=== PATIENT | female | born 1975 | race Caucasian/White ===

== ENCOUNTER 2017-05-18 11:27 | Emergency (ER) | payer BC ==
--- NOTE | 2017-05-18 15:00 | UC ---
Skin Complaint HPI - HPI Summary HPI Summary: DIFFUSE CIRCULAR RASHES ITHCHY ON TOR[place] WITH SMALL BLISTER IN CENTER. NO FEVER. NO KNOWN TRAUMA, NO KNOWN EXPOSURES. SYMPTOMS BEGAN ONE WEEK AGO. NEW ONES DEVELOP EACH NIGHT. - History of Current Complaint Chief Complaint: UCSkin Time Seen by Provider: 05/18/17 13:36 Stated Complaint: RASH Hx Obtained From: Patient Hx Last Menstrual Period: 05/05/17 Onset/Duration: Sudden Onset, Lasting Weeks, Still Present Skin Exposure Onset/Duration: Days Ago Timing: Constant Onset Severity: Mild Current Severity: Mild Pain Intensity: 0 Pain Scale Used: 0-10 Numeric Location: Diffuse - TORSO Character: Pruritus, Raised Aggravating: Touch Alleviating: Nothing Associated Signs & Symptoms: Positive: Rash. Negative: Vomiting, Numbness, Weakness, Fever, Chills, Hoarseness, Throat Tightening, Drainage, Bruising, Tenderness Related History: Insect Bite/Sting - Allergy/Home Medications Allergies/Adverse Reactions: Allergies Allergy/AdvReac Type Severity Reaction Status Date / Time No Known Allergies Allergy Verified 10/03/12 14:02 Review of Systems Constitutional: Negative Skin: Rash Eyes: Negative ENT: Negative Respiratory: Negative Cardiovascular: Negative Gastrointestinal: Negative Genitourinary: Negative Motor: Negative Neurovascular: Negative Musculoskeletal: Negative Neurological: Negative Psychological: Negative All Other Systems Reviewed And Are Negative: Yes PMH/Surg Hx/FS Hx/Imm Hx Previously Healthy: Yes - Surgical History Surgical History: Yes Surgery Procedure, Year, and Place: sinus surgery 1994 - Family History Known Family History: Negative: Blood Disorder - Social History Occupation: Employed Full-time Lives: With Family Alcohol Use: Occasionally Substance Use Type: None Smoking Status (MU): Never Smoked Tobacco Physical Exam Triage Information Reviewed: Yes Appearance: Well-Appearing, No Pain Distress, Well-Nourished Vital Signs: Initial Vital Signs Temp 97.9 F 05/18/17 13:13 Pulse 90 05/18/17 13:13 Resp 16 05/18/17 13:13 Pulse Ox 100 05/18/17 13:13 Vital Signs Reviewed: Yes Eye Exam: Normal ENT Exam: Normal ENT: Positive: Normal ENT inspection, Hearing grossly normal, Pharynx normal, TMs normal Dental Exam: Normal Neck exam: Normal Neck: Positive: Supple, Nontender, No Lymphadenopathy Respiratory Exam: Normal Respiratory: Positive: Chest non-tender, Lungs clear, Normal breath sounds, No respiratory distress, No accessory muscle use Cardiovascular Exam: Normal Cardiovascular: Positive: RRR, No Murmur, Pulses Normal Abdominal Exam: Normal Musculoskeletal Exam: Normal Musculoskeletal: Positive: Strength Intact, ROM Intact Neurological Exam: Normal Psychological Exam: Normal Psychological: Positive: Normal Response To Family Skin: Positive: rashes - DIFFUSE ERYTHEMATOUS 1CM X 1CM CIRCULAR RASHES WITH 1mm X 1mm VESICULAR BLISTER IN CENTER ON TOR[place] Course/Dx - Differential Diagnoses - Skin Complaint Differential Diagnoses: Contact Dermatitis, Drug Rash, Eczema, Impetigo, Poison Mary, Scabies, [place], Sher-Jorge Alberto Syndrome, Systemic Illness, Tick Born Illness, Tinea, Urticaria - Diagnoses Provider Diagnoses: INSECT BITES/STING TORSO; LOCAL ALLERGIC REACTIONS Discharge - Discharge Plan Condition: Stable Disposition: HOME Prescriptions: Triamcinolone 0.1% OINT(NF) [Kenalog 0.1% OINT(NF)] 1 applic .SEE ORDER BID #1 tube Patient Education Materials: Insect Bite or Sting (ED) Referrals: Chandan Nunez MD [Primary Care Provider] - Images Front/Back of Body, Lg ([place]): 1 - DIFFUSE ERYTHEMATOUS 1CM X 1CM CIRCULAR RASHES WITH 1mm X 1mm VESICULAR BLISTER IN CENTER ON [place] 2 - DIFFUSE ERYTHEMATOUS 1CM X 1CM CIRCULAR RASHES WITH 1mm X 1mm VESICULAR BLISTER IN CENTER ON [place]
== END 2017-05-18 14:15 | disposition home or self-care (01) ==
LOC: UCEAST 11:27
DX: S30.861A Insect bite (nonvenomous) of abdominal wall, initial encounter (principal); W57.XXXA Bitten or stung by nonvenomous insect and other nonvenomous arthropods, initial encounter; Y93.9 Activity, unspecified; Y92.9 Unspecified place or not applicable; Y99.9 Unspecified external cause status
CPT/HCPCS: 99212; G0463

== ENCOUNTER 2017-09-19 11:30 | Emergency (ER) | payer BC ==
[2017-09-19] MEDS ORDERED: NS 0.9% 1000 ML* 1,000 ML IV ONE (13:22)
[2017-09-19] MEDS ORDERED: Morphine INJ* 4 MG/ML 1 ML CARPUJECT IV ONE ×2 (13:22→15:43)
--- NOTE | 2017-09-19 13:28 | ED ---
Adult Trauma - HPI Summary HPI Summary: Pt here w/ fall downstairs last night - lost her footing and fell backward, landing on stairs - back striking step edge. Large bruise with bump now over lower back. Painful lying flat on back or sitting with back resting against chair - better w/ lying on side. Denies LOC, head injury, BENÍTEZ, photophobia, nausea, vomiting, visual change, neck pain, numbness, tingling, weakness, hematuria, ab pain, chest pain, SOB, change in bowel/bladder habits. She's been icing and took ibuprofen 800mg. Back pain is starting to wrap around Lt side. - History of Current Complaint Chief Complaint: EDBackInjuryPain Stated Complaint: FALL BACK PAIN Time Seen by Provider: 09/19/17 12:03 Hx Obtained From: Patient Hx Last Menstrual Period: 05/05/17 Pain Intensity: 8 - Allergy/Home Medications Allergies/Adverse Reactions: Allergies Allergy/AdvReac Type Severity Reaction Status Date / Time No Known Allergies Allergy Verified 10/03/12 14:02 PMH/Surg Hx/FS Hx/Imm Hx Previously Healthy: Yes Endocrine/Hematology History: Denies: Hx Anticoagulant Therapy, Hx Blood Disorders, Hx Anemia, Hx Unexplained Bleeding, Hx Coagulopothy Musculoskeletal History: Denies: Hx Osteoporosis - Cancer History Hx Chemotherapy: No Hx Radiation Therapy: No - Surgical History Surgery Procedure, Year, and Place: sinus surgery 1994 Infectious Disease History: No Infectious Disease History: Denies: Hx Clostridium Difficile, Hx Hepatitis, Hx Human Immunodeficiency Virus (HIV), Hx of Known/Suspected MRSA, Hx Shingles, Hx Tuberculosis, Hx Known/ Suspected VRE, Hx Known/Suspected VRSA, History Other Infectious Disease, Traveled Outside the [place] in Last 30 Days - Family History Known Family History: Negative: Blood Disorder - Social History Occupation: Employed Full-time Lives: With Family Alcohol Use: Occasionally Hx Substance Use: No Substance Use Type: Reports: None Hx Tobacco Use: No Smoking Status (MU): Never Smoked Tobacco Review of Systems Constitutional: Negative Negative: Fatigue Eyes: Negative Negative: Photophobia, Blurred Vision, Diplopia ENT: Negative Negative: Dental Pain Cardiovascular: Negative Negative: Chest Pain Respiratory: Negative Negative: Shortness Of Breath Gastrointestinal: Negative Positive: Abdominal Pain - as in HPI. Negative: Vomiting, Diarrhea, Nausea Positive: flank pain - as in HPI. Negative: hematuria, incontinence Positive: Arthralgia, Myalgia Positive: Bruising Neurological: Negative Negative: Headache, Weakness, Paresthesia, Numbness, Syncope, Slurred Speech Psychological: Normal All Other Systems Reviewed And Are Negative: Yes Physical Exam Triage Information Reviewed: Yes Vital Signs On Initial Exam: Initial Vitals Temp Pulse Resp BP Pulse Ox 97.7 F 99 20 153/99 97 09/19/17 11:49 09/19/17 11:49 09/19/17 11:49 09/19/17 11:49 09/19/17 11:49 Vital Signs Reviewed: Yes Appearance: Positive: Well-Appearing, Well-Nourished, Pain Distress - mild Skin: Positive: Warm - favian purpuric ecchymosis over lumbar region and up into lower thoracic region w/ central clear skin which is well defined and raised - TTP, Dry Head/Face: Positive: Normal Head/Face Inspection Eyes: Positive: Normal, EOMI, FABIO, Conjunctiva Clear ENT: Positive: Normal ENT inspection, Hearing grossly normal, Pharynx normal, TMs normal - no hemotympanum Dental: Negative: Dental Fracture @ Neck: Positive: Supple, Nontender - FROM w/o pain or restriction Respiratory/Lung Sounds: Positive: Clear to Auscultation, Breath Sounds Present , Other - no flail chest Cardiovascular: Positive: Normal, RRR, S1, S2 Abdomen Description: Positive: No Organomegaly, Soft, Other: - mild LUQ TTP Bowel Sounds: Positive: Present Musculoskeletal: Positive: Normal, Strength/ROM Intact, Pain @ - back TTP as mentioned above Neurological: Positive: Normal, Sensory/Motor Intact, Alert, Oriented to Person Place, Time, CN Intact II-III Psychiatric: Positive: Normal - Zhen Coma Scale Coma Scale Total: 15 Diagnostics - Vital Signs Vital Signs Temp Pulse Resp BP Pulse Ox 09/19/17 11:49 97.7 F 99 20 153/99 97 - Laboratory Result Diagrams: 09/19/17 13:45 09/19/17 13:45 Diagnostic Studies Comment: CT chest/ab/pelvis: report indicates hematoma 13.4cm x 3.9cm x 8.9cm w/o other acute findings Lab Statement: Any lab studies that have been ordered have been reviewed, and results considered in the medical decision making process. Re-Evaluation - Re-Evaluation First Eval Change: Improved - morphine Second Eval Change: Worse - pain worse after CT - morphine ordered Third Eval Change: Improved Adult Trauma Course/Dx - Course Course Of Treatment: Pt here w/ fall downstairs last night and landed on back. Large hematoma is only acute pathology discovered upon PE and CT scan. Labs and vitals are stable. Pt d/c'd home w/ advice to rest, ice and take pain meds as directed. F/u w/ PCP. Danger s/sx reviewed for when to f/u in ED. Pt and male friend agree w/ plan. - Diagnoses Provider Diagnoses: Fall down stairs, Traumatic hematoma of lower back Discharge - Discharge Plan Condition: Stable Disposition: HOME Prescriptions: HYDROcodone/ACETAMIN 5-325 MG* [[place] 5-325 TAB*] 1 tab PO Q6H PRN #20 tab MDD 4 PRN Reason: Pain Ibuprofen TAB* [Motrin TAB* 600 MG] 600 mg PO Q6H PRN #20 tab PRN Reason: Pain Patient Education Materials: Hematoma (ED), Fall Prevention (ED) Referrals: Chandan Nunez MD [Primary Care Provider] - Additional Instructions: Rest, out of work, ice, take meds as directed Follow-up with PCP in 1 week *If you develop bloody urine, changes in bladder/bowel function, headache, visual change, vomiting, chest pain, shortness of breath, fever, lower extremity numbness, tingling or weakness, return to ED
[2017-09-19] MEDS: Ondansetron INJ* 2 MG/ML VIAL IV ONE ×2 (13:50→13:55)
[2017-09-19 14:03] LABS: Hematocrit 36 % (35-47); Mean Corpuscular HGB Conc 34 g/dl (31-36); Mean Corpuscular Hemoglobin 30 pg (27-31); Mean Corpuscular Volume 89 fL (80-97); Mean Platelet Volume 8 um3 (7.4-10.4); Red Blood Count 4.04 10^6/ul (4.0-5.4); Red Cell Distribution Width 14 % (10.5-15); White Blood Count 5.4 10^3/ul (3.5-10.8)
[2017-09-19 14:17] LABS: ALT 13 U/L (7-52); AST 15 U/L (13-39); Albumin 3.8 g/dL (3.2-5.2); Alkaline Phosphatase 36 U/L (34-104); Anion Gap 5 mmol/L (2-11); BUN/Creatinine Ratio 17.4 (8-20); Blood Urea Nitrogen 12 mg/dL (6-24); CO2 Carbon Dioxide 23 mmol/L (22-32); Calcium 8.6 mg/dL (8.6-10.3); Chloride 106 mmol/L (101-111); Creatine Kinase 55 U/L (10-223); EGFR African American 120.6 (>60); EGFR Non-African American 93.8 (>60); Globulin 2.5 g/dL (2-4); Glucose 94 mg/dL (70-100); Potassium 3.7 mmol/L (3.5-5.0); Sodium 134 mmol/L (133-145); Total Protein 6.3 g/dL (6.4-8.9)
[2017-09-19] MEDS ORDERED: Iohexol 300* (CONTRAST) 10 ML SDV IV ONE (14:25)
[2017-09-19 14:41] LABS: Urine Bilirubin Negative (Negative); Urine Glucose Negative (Negative); Urine Nitrite Negative (Negative)
--- NOTE | 2017-09-19 15:18 | RAD ---
INDICATION: Fall. Chest and abdominal trauma. COMPARISON: None TECHNIQUE: Axial source images were obtained from the thoracic inlet to the symphysis pubis following administration of oral and intravenous contrast. 121 mL Omnipaque 300 was utilized. Coronal and sagittal reconstructed images were acquired. CHEST FINDINGS: Neck/thyroid: The visualized neck to include the thyroid appear normal. Chest wall: There are no acute abnormalities of the bony thorax or chest wall. There is no supraclavicular, infraclavicular, or axillary lymphadenopathy. Lungs : There are no pulmonary parenchymal masses or infiltrates. The pulmonary interstitium appears normal. There are no endobronchial lesions. Cardiomediastinal structures: The heart is normal in size. There is no pericardial effusion. There is no evidence of aortic aneurysm or dissection. The pulmonary vessels appear normal. There is no mediastinal or hilar adenopathy. The esophagus appears normal. Pleura : There are no pleural-based masses or effusions. ABDOMINAL/PELVIC FINDINGS: Liver: The liver is normal in size. There are no masses. There is no ductal dilatation. Gallbladder: There are no calcified gallstones. There is no evidence of wall thickening or pericholecystic fluid. Spleen: The spleen is normal in size. There are no masses. Pancreas: There is no evidence of pancreatic mass or ductal dilatation. Adrenal glands: There is no evidence of adrenal mass. Kidneys: The kidneys are normal in size and position. There are prompt nephrograms and there is prompt excretion bilaterally. There are no renal parenchymal masses. There is no evidence of nephrolithiasis. Adenopathy: There is no evidence of adenopathy by size criteria. Fluid collections: There are no free or localized fluid collections. Vessels:The aorta and IVC appear normal GI tract: There are no acute CT bowel findings. There is no obstruction. The stomach and small bowel appear normal. The lower GI tract is normal. The cecum, ileocecal valve, and terminal ileum appear normal. The appendix is visualized and appear normal. Pelvic organs: The uterus and adnexa appear normal Bladder: There are no bladder masses. Abdominal and pelvic soft tissues: In the posterior soft tissues of the back along the midline extending from L3 through L5 is a soft tissue density mass measuring 13.4 x 3.9 cm in transverse dimensions and 8.9 cm in cephalocaudal dimension. By report this represent a large hematoma related to direct trauma. There are no additional soft tissue abnormalities. Osseous structures: There are no acute osseous findings. IMPRESSION: THERE IS A LARGE SUPERFICIAL HEMATOMA ALONG THE MIDLINE OF THE LOWER BACK. THERE IS NO CT EVIDENCE OF VISCERAL INJURY OR ACUTE FRACTURE.
[2017-09-19 15:53] VITALS: BP 121/66
--- NOTE | 2017-09-19 17:20 | RAD ---
HISTORY: Left forearm pain and bruising, fall COMPARISONS: None VIEWS: 2, Frontal and lateral views of the left forearm FINDINGS: BONE DENSITY: Normal. BONES: There is no displaced fracture. JOINTS: There is no arthropathy. ALIGNMENT: There is no dislocation. SOFT TISSUES: Unremarkable. OTHER FINDINGS: None. IMPRESSION: NO ACUTE OSSEOUS INJURY. IF SYMPTOMS PERSIST, RECOMMEND REPEAT IMAGING.
== END 2017-09-19 16:50 | disposition home or self-care (01) ==
LOC: ED 11:30
DX: S30.0XXA Contusion of lower back and pelvis, initial encounter (principal); R10.9 Unspecified abdominal pain; R10.84 Generalized abdominal pain; W10.9XXA Fall (on) (from) unspecified stairs and steps, initial encounter; Y93.9 Activity, unspecified; Y92.9 Unspecified place or not applicable
CPT/HCPCS: 36415; 71260; 74177; 80053; 81003; 82550; 83605; 84702; 85025; 85610; 86850; 86900; 86901; 99283; J2270; J2405; Q9967